=== PATIENT | female | born 1955 | race Caucasian/White ===

== ENCOUNTER 2019-02-23 20:11 | Emergency (ER) | payer MEDICAID ==
[~2019-02-23] VITALS: Ht 154.9 cm; Wt 77.2 kg
[2019-02-23 21:33] LABS: BASOPHILS % 0.6 % (0.0-2.0); EOSINOPHILS % 1.3 % (0.0-5.0); HEMATOCRIT. 32.1 % (36.0-48.0); HEMOGLOBIN. 10.9 g/dL (12.0-16.0); LYMPHOCYTES % 26.5 % (20.0-50.0); MEAN CORPUSCULAR HEMOGLOBIN 29.2 pg (28.0-32.0); MEAN CORPUSCULAR VOLUME 86.4 fL (81.0-99.0); MEAN PLATELET VOLUME 8.9 fl (7.4-10.4); MONOCYTES % 8.4 % (2.0-8.0); NEUTROPHILS % 63.2 % (40.0-76.0); PLATELET 210 x1000/uL (130-400); RED BLOOD CELL COUNT 3.71 mill/uL (4.2-5.4); RED CELL DISTRIBUTION WIDTH 15.9 % (11.6-14.6)
[2019-02-23 21:37] LABS: PROTHROMBIN TIME 10.1 sec (9.6-11.0)
[2019-02-23 21:41] LABS: CHLORIDE 111 mEq/L (98-107)
[2019-02-23 21:46] LABS: ETHANOL BLOOD < 10 mg/dL
[2019-02-23 21:48] LABS: LDL CHOLESTEROL 89 mg/dL (5-100)
[2019-02-23] MEDS ORDERED: PREDNISONE 20MG TABLET PO ONE (22:00)
[2019-02-24 01:53] VITALS: BP 140/65
== END 2019-02-24 02:00 | disposition left against medical advice (07) ==
LOC: ER 20:11 → CANBEDREQ 02-24 02:08
DX: G51.0 Bell's palsy (principal); M32.9 Systemic lupus erythematosus, unspecified; I10 Essential (primary) hypertension
CPT/HCPCS: 36415; 70450; 71045; 80053; 80320; 82962; 83721; 84484; 85025; 85610; 93005; 99284; J7512; G0480